=== PATIENT | male | born 1960 | race Caucasian/White ===

== ENCOUNTER 2023-01-20 10:15 | Emergency (ER) | payer OTHER ==
[~2023-01-20] VITALS: Ht 175.3 cm; Wt 72.7 kg
[2023-01-20 10:31] VITALS: TEMP 97.8
[2023-01-20 11:05] LABS: COVID AG,FIA SOURCE NASAL SWAB
[2023-01-20 11:10] LABS: BASOPHILS % (AUTO) 0.1 % (0.0-2.0); EOSINOPHILS % (AUTO) 0.7 % (1.0-6.0); HEMATOCRIT 49.5 % (41-53); LYMPHOCYTES % (AUTO) 12.3 % (22.0-44.0); MEAN CORPUSCULAR HEMOGLOBIN 33.4 pg (26.0-34.0); MEAN CORPUSCULAR HGB CONC 34.3 G/dL (31.0-37.0); MEAN CORPUSCULAR VOLUME 97 fL (80-100); MONOCYTES # (AUTO) 0.8 K/uL (0.1-1.0); MONOCYTES % (AUTO) 10.3 % (2.0-9.0); NEUTROPHILS # (AUTO) 6.3 K/uL (1.8-7.7); NEUTROPHILS % (AUTO) 76.6 % (40.0-70.0); PLATELET COUNT (AUTO) 202 K/uL (150-450); RED BLOOD CELL COUNT(AUTO) 5.08 MIL/uL (4.50-5.90); RED CELL DISTRIBUTION WIDTH 14.4 % (11.5-14.5); WHITE BLOOD COUNT (AUTO) 8.2 K/uL (4.5-11.0)
[2023-01-20 11:20] LABS: ANION GAP 7 mmol/L (8-16); CARBON DIOXIDE 28 mmol/L (22-29); CHLORIDE 101 mmol/L (98-107); CREATININE 0.95 mg/dL (0.60-1.30); GLUCOSE,RANDOM 101 mg/dL (70-110); POTASSIUM 4.1 mmol/L (3.5-5.1); SODIUM SERUM 136 mmol/L (136-145); UREA NITROGEN, BLOOD 14 mg/dL (7-18)
[2023-01-20 11:21] LABS: CALCIUM, TOTAL 9.6 mg/dL (8.8-10.5); GLOMERULAR FILTR. RATE CALC > 60 mL/min (>60)
[2023-01-20 11:26] LABS: ALANINE AMINOTRANSFERASE 18 U/L (12-78); ALBUMIN 4.6 g/dL (3.4-5.0); ALKALINE PHOSPHATASE 125 U/L (46-116); ASPARTATE AMINOTRANSFERASE 34 U/L (15-37); BILIRUBIN,TOTAL 0.7 mg/dL (0.1-1.0); LIPASE 27 U/L (16-77); TOTAL PROTEIN, SERUM 7.7 g/dL (6.4-8.2)
[2023-01-20 11:28] LABS: TROPONIN I-HIGH SENSITIVITY 7 ng/L (<76)
[2023-01-20 11:36] LABS: SARS-COV2 (COVID) ANTIGEN,FIA Negative (Negative)
[2023-01-20 11:39] LABS: INFLUENZA TYPE A NEGATIVE FOR TYPE A (NEGATIVE); INFLUENZA TYPE B NEGATIVE FOR TYPE B (NEGATIVE)
[2023-01-20] MEDS ORDERED: MECL-134 PO (12:26)
[2023-01-20] MEDS ORDERED: ONDA-104 PO (12:26)
[2023-01-20 12:43] VITALS: BP 137/87; PULSE 61; RESP 18
== END 2023-01-20 13:03 | disposition home or self-care (01) ==
LOC: EMS 10:15
DX: R42 Dizziness and giddiness (principal); Z85.72 Personal history of non-Hodgkin lymphomas; Z85.9 Personal history of malignant neoplasm, unspecified; Z88.5 Allergy status to narcotic agent; Z20.822 Contact with and (suspected) exposure to COVID-19
CPT/HCPCS: 80053; 83690; 84484; 85025; 87804; 93005; 99284

== ENCOUNTER 2023-02-02 07:25 | Emergency (ER) | payer OTHER ==
[~2023-02-02] VITALS: Ht 172.7 cm; Wt 68.2 kg
[~2023-02-02 07:25] MED LIST: MECL-134 PO; ONDA-104 PO
[2023-02-02 07:34] VITALS: TEMP 98.2
[2023-02-02] MEDS ORDERED: ACET-66 PO (07:47)
[2023-02-02] MEDS ORDERED: ACYC400T20 PO (07:47)
[2023-02-02] MEDS ORDERED: OMEP20CA12 PO (07:47)
[2023-02-02] MEDS ORDERED: LEVO100 PO (07:47)
[2023-02-02] MEDS ORDERED: EMTR1TAB13 PO (07:47)
[2023-02-02] MEDS ORDERED: GABA-529 PO (07:47)
[2023-02-02 08:26] LABS: BASOPHILS % (AUTO) 0.5 % (0.0-2.0); EOSINOPHILS % (AUTO) 3.5 % (1.0-6.0); HEMATOCRIT 45.7 % (41-53); HEMOGLOBIN 15.6 g/dL (13.5-17.5); LYMPHOCYTES # (AUTO) 0.8 K/uL (1.0-4.8); LYMPHOCYTES % (AUTO) 16.8 % (22.0-44.0); MEAN CORPUSCULAR HEMOGLOBIN 33.4 pg (26.0-34.0); MEAN CORPUSCULAR HGB CONC 34.2 G/dL (31.0-37.0); MEAN CORPUSCULAR VOLUME 98 fL (80-100); MONOCYTES # (AUTO) 0.7 K/uL (0.1-1.0); MONOCYTES % (AUTO) 13.9 % (2.0-9.0); NEUTROPHILS # (AUTO) 3.2 K/uL (1.8-7.7); NEUTROPHILS % (AUTO) 65.3 % (40.0-70.0); PLATELET COUNT (AUTO) 168 K/uL (150-450); RED BLOOD CELL COUNT(AUTO) 4.68 MIL/uL (4.50-5.90); RED CELL DISTRIBUTION WIDTH 14.7 % (11.5-14.5); WHITE BLOOD COUNT (AUTO) 4.9 K/uL (4.5-11.0)
[2023-02-02 08:49] LABS: ANION GAP 8 mmol/L (8-16); CALCIUM, TOTAL 9.1 mg/dL (8.8-10.5); CARBON DIOXIDE 26 mmol/L (22-29); CHLORIDE 104 mmol/L (98-107); CREATININE 0.83 mg/dL (0.60-1.30); GLOMERULAR FILTR. RATE CALC > 60 mL/min (>60); GLUCOSE,RANDOM 99 mg/dL (70-110); POTASSIUM 4.1 mmol/L (3.5-5.1); SODIUM SERUM 138 mmol/L (136-145); UREA NITROGEN, BLOOD 9 mg/dL (7-18)
[2023-02-02 08:55] LABS: ALANINE AMINOTRANSFERASE 21 U/L (12-78); ALBUMIN 3.9 g/dL (3.4-5.0); ALKALINE PHOSPHATASE 101 U/L (46-116); ASPARTATE AMINOTRANSFERASE 24 U/L (15-37); BILIRUBIN,TOTAL 0.8 mg/dL (0.1-1.0); TOTAL PROTEIN, SERUM 6.7 g/dL (6.4-8.2)
[2023-02-02 09:00] LABS: ALCOHOL, BLOOD (SERUM) < 3 mg/dL (0-10)
[2023-02-02] MEDS ORDERED: KETOROLAC TROMETHAMINE 60 MG/2 ML VIAL IM ONE (09:15)
[2023-02-02] MEDS ORDERED: GABAPENTIN 300 MG CAPSULE PO ONE (09:15)
[2023-02-02] MEDS ORDERED: SERT-158 PO (10:02)
[2023-02-02] MEDS ORDERED: GABA-1181 PO (10:02)
[2023-02-02 10:45] VITALS: BP 135/86; PULSE 71; RESP 18
== END 2023-02-02 11:03 | disposition home or self-care (01) ==
LOC: EMS 07:41
DX: S39.012A Strain of muscle, fascia and tendon of lower back, initial encounter (principal); F17.210 Nicotine dependence, cigarettes, uncomplicated; Z85.72 Personal history of non-Hodgkin lymphomas; Z88.5 Allergy status to narcotic agent; Z88.8 Allergy status to other drugs, medicaments and biological substances; X58.XXXA Exposure to other specified factors, initial encounter; Y93.89 Activity, other specified; Y92.89 Other specified places as the place of occurrence of the external cause; Y99.8 Other external cause status
CPT/HCPCS: 99283; 80053; 85025; 36415; 96372; G0480; J1885

== ENCOUNTER 2023-04-03 22:01 | Emergency (ER) | payer OTHER ==
[~2023-04-03] VITALS: Ht 172.7 cm; Wt 79.1 kg
[~2023-04-03 22:01] MED LIST changes: +ACET-66 PO; +ACYC400T20 PO; +EMTR1TAB13 PO; +GABA-1181 PO; +GABA-529 PO; +LEVO100 PO; +OMEP20CA12 PO; +SERT-158 PO
[2023-04-03 22:15] VITALS: TEMP 98
[2023-04-03 23:47] VITALS: BP 152/91; PULSE 51; RESP 16
== END 2023-04-03 23:50 | disposition home or self-care (01) ==
LOC: EMS 22:03
DX: F41.9 Anxiety disorder, unspecified (principal); F32.A Depression, unspecified; E03.9 Hypothyroidism, unspecified; F17.210 Nicotine dependence, cigarettes, uncomplicated; Z98.890 Other specified postprocedural states; Z88.5 Allergy status to narcotic agent; Z88.8 Allergy status to other drugs, medicaments and biological substances
CPT/HCPCS: 99281; Z7502